=== PATIENT | female | born 1980 | race Caucasian/White ===

== ENCOUNTER 2018-12-28 12:38 | Emergency (ER) | payer BC, MEDICARE ==
[2018-12-28 12:57] VITALS: RESP 18; TEMP 97
--- NOTE | 2018-12-28 13:03 | ED ---
General Adult HPI - General Chief complaint: Psychiatric Symptoms Stated complaint: Suicidal Time Seen by Provider: 12/28/18 12:45 Source: patient, EMS, RN notes reviewed Mode of arrival: EMS Limitations: no limitations - History of Present Illness Initial comments: This is a 38-year-old female who comes in stating she no longer wants to live and has been considering taking a handful of pills to kill herself. Patient states she has chronic pain and she sick of being in pain so she wants to end it. Patient was at Dr. [place]'s office when she made these comments and the police were called and they brought her over to the hospital. Patient mother will be petitioning her. Patient denies any new physical complaints today. Patient states she only says knee pain and back pain but those have not changed. Patient denies any recent fever chills or cough. Patient denies any chest pain difficulty breathing shortest breath per patient denies any abdominal pain patient denies nausea vomiting diarrhea. - Related Data Home Medications Medication Instructions Recorded Confirmed DULoxetine HCL 60 mg PO BID 06/17/15 12/28/18 Naproxen [Naprosyn] 500 mg PO Q12HR 06/17/15 12/28/18 Polyethylene Glycol 3350 [Miralax] 34 gm PO DAILY 06/17/15 12/28/18 tiZANidine [Zanaflex] 4 - 8 mg PO BID PRN 06/17/15 12/28/18 Amitriptyline HCl [Elavil] 75 mg PO HS 07/30/16 12/28/18 L.acidoph,Paracasei, B.lactis 1 cap PO DAILY 12/28/18 12/28/18 [Probiotic] Lubiprostone [Amitiza] 24 mcg PO BID 12/28/18 12/28/18 Melatonin 5 mg PO HS 12/28/18 12/28/18 Multivitamins, Thera [Multivitamin 1 tab PO DAILY 12/28/18 12/28/18 (formulary)] Primidone [Mysoline] 50 mg PO DAILY 12/28/18 12/28/18 Primidone [Mysoline] 125 mg PO BID 12/28/18 12/28/18 traMADol HCL [Ultram] 50 mg PO BID PRN 12/28/18 12/28/18 Allergies Allergy/AdvReac Type Severity Reaction Status Date / Time No Known Allergies Allergy Verified 12/28/18 13:04 Review of Systems ROS Statement: Those systems with pertinent positive or pertinent negative responses have been documented in the HPI. ROS Other: All systems not noted in ROS Statement are negative. Past Medical History Past Medical History: Fibromyalgia, Osteoarthritis (OA) Additional Past Medical History / Comment(s): bilateral chronic knee pain, History of Any Multi-Drug Resistant Organisms: None Reported Past Surgical History: Cholecystectomy, Orthopedic Surgery Additional Past Surgical History / Comment(s): mult arthroscopy surgery on angelic knees, left knee ACL repair, Bone spurs on left knee, rt wrist surgery, carpal tunnel left Past Anesthesia/Blood Transfusion Reactions: No Reported Reaction Past Psychological History: Anxiety, Depression Smoking Status: Never smoker Past Alcohol Use History: None Reported Past Drug Use History: None Reported - Past Family History Mother Family Medical History: No Reported History General Exam - General Exam Comments Initial Comments: GENERAL: Patient is well-developed and well-nourished. Patient is nontoxic and well- hydrated and is in no acute distress. ENT: Neck is soft and supple. No significant lymphadenopathy is noted. EYES: The sclera were anicteric and conjunctiva were pink and moist. Extraocular movements were intact and pupils were equal round and reactive to light. Eyelids were unremarkable. PULMONARY: Unlabored respirations. Good breath sounds bilaterally. No audible rales rhonchi or wheezing was noted. CARDIOVASCULAR: There is a regular rate and rhythm without any murmurs gallops or rubs. ABDOMEN: Soft and nontender with normal bowel sounds. SKIN: Skin is clear with no lesions or rashes and otherwise unremarkable. NEUROLOGIC: Patient is alert and oriented x3. Cranial nerves II through XII are grossly intact. Motor and sensory are also intact. Normal speech, volume and content. Symmetrical smile. MUSCULOSKELETAL: Normal extremities with adequate strength and full range of motion. LYMPHATICS: No significant lymphadenopathy is noted PSYCHIATRIC: Patient is a flat affect and appears very depressed. Patient states she doesn't want to live anymore and is considering taking a handful of pills to kill herself Limitations: no limitations Course Vital Signs 12/28/18 12:48 Temperature 97 F L Pulse Rate 75 Respiratory 18 Rate Blood Pressure 130/83 O2 Sat by Pulse 100 Oximetry Medical Decision Making - Medical Decision Making EPS evaluated the patient and spoke with both the patient and mom everybody was comfortable with the follow-up plan and the patient states at this point time she is not feeling suicidal and will be safe if she goes home. - Lab Data Lab Results 12/28/18 Range/Units 13:02 Urine Opiates Screen Not Detected (NotDetected) Ur Oxycodone Screen Not Detected (NotDetected) Urine Methadone Screen Not Detected (NotDetected) Ur Propoxyphene Screen Not Detected (NotDetected) Ur Barbiturates Screen Detected H (NotDetected) U Tricyclic Antidepress Detected H (NotDetected) Ur Phencyclidine Scrn Not Detected (NotDetected) Ur Amphetamines Screen Not Detected (NotDetected) U Methamphetamines Scrn Not Detected (NotDetected) U Benzodiazepines Scrn Not Detected (NotDetected) Urine Cocaine Screen Not Detected (NotDetected) U Marijuana (THC) Screen Not Detected (NotDetected) Disposition Clinical Impression: Situational depression Disposition: HOME SELF-CARE Condition: Good Instructions (If sedation given, give patient instructions): Depression (ED) Is patient prescribed a controlled substance at d/c from ED?: No Referrals: Edie Vinson MD [Primary Care Provider] - 1-2 days Time of Disposition: 14:22
[2018-12-28 13:38] LABS: Amphetamine Screen,Urine Not Detected (NotDetected); Barbiturate Screen,Urine Detected (NotDetected); Benzodiazepines Screen,Urine Not Detected (NotDetected); Cocaine Screen,Urine Not Detected (NotDetected); Methadone Screen, Urine Not Detected (NotDetected); Opiate Screen,Urine Not Detected (NotDetected); Oxycodone Screen, Urine Not Detected (NotDetected); Phencyclidine Screen,Urine Not Detected (NotDetected); Tricyclic Antidepressant,Urine Detected (NotDetected); Urn Cannabinoid Scrn Not Detected (NotDetected)
[2018-12-28 14:38] VITALS: BP 117/77; PULSE 76
== END 2018-12-28 14:37 | disposition home or self-care (01) ==
LOC: EC 12:38
DX: F43.21 Adjustment disorder with depressed mood (principal); M79.7 Fibromyalgia; M19.90 Unspecified osteoarthritis, unspecified site; F41.9 Anxiety disorder, unspecified; M25.561 Pain in right knee; M25.562 Pain in left knee; G89.29 Other chronic pain; F32.9 Major depressive disorder, single episode, unspecified; Z90.49 Acquired absence of other specified parts of digestive tract; Z98.890 Other specified postprocedural states; Z79.1 Long term (current) use of non-steroidal anti-inflammatories (NSAID); Z79.899 Other long term (current) drug therapy
CPT/HCPCS: 80306; 82075; 99285

== ENCOUNTER 2019-01-03 15:00 | Inpatient (IN) | payer MEDICARE, MEDICAID ==
[2019-01-03 15:58] LABS: Cocaine Screen,Urine Not Detected (NotDetected); Phencyclidine Screen,Urine Not Detected (NotDetected); Urn Cannabinoid Scrn Not Detected (NotDetected)
--- NOTE | 2019-01-03 15:58 | ED ---
General Adult HPI - General Chief complaint: Psychiatric Symptoms Stated complaint: Suicidal Time Seen by Provider: 01/03/19 15:00 Source: patient, family, RN notes reviewed Mode of arrival: ambulatory Limitations: no limitations - History of Present Illness Initial comments: This is a 38-year-old female with a past medical history significant for depre ssion. Patient comes in today because she has been feeling so she doesn't want to live. Patient mentioned to somebody last week that she wanted someone to shooter. Patient mentions someone today that she wanted to fall sleep and never wake up. Patient states she would not up done anything today but she has talked about taking pills in the past. Patient was evaluated last week according to the mother. Patient denies any drinking or drug use. Patient denies any physical complaints today. Patient denies headache patient denies numbness weakness. Patient denies any chest pain difficulty breathing first breath per patient denies abdominal pain patient denies nausea vomiting diarrhea. - Related Data Home Medications Medication Instructions Recorded Confirmed DULoxetine HCL 60 mg PO BID 06/17/15 01/03/19 Naproxen [Naprosyn] 500 mg PO Q12HR 06/17/15 01/03/19 Polyethylene Glycol 3350 [Miralax] 34 gm PO DAILY 06/17/15 01/03/19 tiZANidine [Zanaflex] 4 - 8 mg PO TID PRN 06/17/15 01/03/19 Amitriptyline HCl [Elavil] 75 mg PO HS 07/30/16 01/03/19 L.acidoph,Paracasei, B.lactis 1 cap PO DAILY 12/28/18 01/03/19 [Probiotic] Lubiprostone [Amitiza] 24 mcg PO BID 12/28/18 01/03/19 Melatonin 5 mg PO HS 12/28/18 01/03/19 Multivitamins, Thera [Multivitamin 1 tab PO DAILY 12/28/18 01/03/19 (formulary)] Primidone [Mysoline] 50 mg PO DAILY 12/28/18 01/03/19 Primidone [Mysoline] 125 mg PO BID 12/28/18 01/03/19 traMADol HCL [Ultram] 50 mg PO BID PRN 12/28/18 01/03/19 Diclofenac Sodium [Voltaren] 75 mg PO BID 01/03/19 01/03/19 Levothyroxine Sodium [Synthroid] 50 mcg PO DAILY 01/03/19 01/03/19 Medroxyprogesterone Acetate 150 mg IM Q90D 01/03/19 01/03/19 [Depo-Provera] traZODone HCL [Desyrel] 100 mg PO HS 01/03/19 01/03/19 Allergies Allergy/AdvReac Type Severity Reaction Status Date / Time No Known Allergies Allergy Verified 01/03/19 16:24 Review of Systems ROS Statement: Those systems with pertinent positive or pertinent negative responses have been documented in the HPI. ROS Other: All systems not noted in ROS Statement are negative. Past Medical History Past Medical History: Fibromyalgia, Osteoarthritis (OA) Additional Past Medical History / Comment(s): bilateral chronic knee pain, History of Any Multi-Drug Resistant Organisms: None Reported Past Surgical History: Cholecystectomy, Orthopedic Surgery Additional Past Surgical History / Comment(s): mult arthroscopy surgery on angelic knees, left knee ACL repair, Bone spurs on left knee, rt wrist surgery, carpal tunnel left Past Anesthesia/Blood Transfusion Reactions: No Reported Reaction Past Psychological History: Anxiety, Depression Smoking Status: Never smoker Past Alcohol Use History: None Reported Past Drug Use History: None Reported - Past Family History Mother Family Medical History: No Reported History General Exam - General Exam Comments Initial Comments: GENERAL: Patient is well-developed and well-nourished. Patient is nontoxic and well- hydrated and is in no acute distress. ENT: Neck is soft and supple. No significant lymphadenopathy is noted. Oropharynx is clear. Moist mucous membranes. Neck has full range of motion without eliciting any pain. EYES: The sclera were anicteric and conjunctiva were pink and moist. Extraocular mov ements were intact and pupils were equal round and reactive to light. Eyelids were unremarkable. PULMONARY: Unlabored respirations. Good breath sounds bilaterally. No audible rales rhonchi or wheezing was noted. CARDIOVASCULAR: There is a regular rate and rhythm without any murmurs gallops or rubs. ABDOMEN: Soft and nontender with normal bowel sounds. SKIN: Skin is clear with no lesions or rashes and otherwise unremarkable. NEUROLOGIC: Patient is alert and oriented x3. Cranial nerves II through XII are grossly intact. Motor and sensory are also intact. Normal speech, volume and content. Symmetrical smile. MUSCULOSKELETAL: Normal extremities with adequate strength and full range of motion. LYMPHATICS: No significant lymphadenopathy is noted PSYCHIATRIC: Patient states she would rather be which is not planning on killing herself. Limitations: no limitations Course Vital Signs 01/03/19 01/03/19 15:03 17:40 Temperature 98.2 F 98.7 F Pulse Rate 84 67 Respiratory 16 18 Rate Blood Pressure 122/81 119/81 O2 Sat by Pulse 96 99 Oximetry Medical Decision Making - Medical Decision Making EKG was done on request of the psychiatrist. EKG shows normal sinus rhythm at 70 bpm VT interval 176 QRS is 80 QT interval 366 QTC is 417. Patient's EKG shows no ST segment elevation or depression or T wave abnormalities are noted. EPS evaluated the patient and determined the patient needed be admitted. - Lab Data Lab Results 01/03/19 Range/Units 15:21 Urine Opiates Screen Not Detected (NotDetected) Ur Oxycodone Screen Not Detected (NotDetected) Urine Methadone Screen Not Detected (NotDetected) Ur Propoxyphene Screen Not Detected (NotDetected) Ur Barbiturates Screen Detected H (NotDetected) U Tricyclic Antidepress Detected H (NotDetected) Ur Phencyclidine Scrn Not Detected (NotDetected) Ur Amphetamines Screen Not Detected (NotDetected) U Methamphetamines Scrn Not Detected (NotDetected) U Benzodiazepines Scrn Not Detected (NotDetected) Urine Cocaine Screen Not Detected (NotDetected) U Marijuana (THC) Screen Not Detected (NotDetected) Disposition Clinical Impression: Depression, Suicidal ideation Disposition: ADMITTED IP TO THIS [facility] Time of Disposition: 18:15
[2019-01-03 15:59] LABS: Amphetamine Screen,Urine Not Detected (NotDetected); Barbiturate Screen,Urine Detected (NotDetected); Benzodiazepines Screen,Urine Not Detected (NotDetected); Methadone Screen, Urine Not Detected (NotDetected); Opiate Screen,Urine Not Detected (NotDetected); Oxycodone Screen, Urine Not Detected (NotDetected); Tricyclic Antidepressant,Urine Detected (NotDetected)
[2019-01-03] MEDS ORDERED: MAG HYDROX/AL HYDROX/SIMETH 30 ML CUP PO PRN (18:28)
[2019-01-03] MEDS ORDERED: MAGNESIUM HYDROXIDE 2,400 MG/10 ML CUP PO PRN (18:28)
[2019-01-03] MEDS ORDERED: ZIPRASIDONE 20 MG VIAL IM PRN (18:28)
[2019-01-03] MEDS ORDERED: LORazepam 2 MG/ML INJ IM PRN (18:38)
[2019-01-03] MEDS ORDERED: tiZANidine 4 MG TAB PO PRN (18:49)
[2019-01-03] MEDS: NAPROXEN 250 MG TAB PO SCH (21:23)
[2019-01-03] MEDS: DULoxetine HCL 60 MG CAPSULE.DR PO SCH (21:23)
[2019-01-03] MEDS: AMITRIPTYLINE HCL 25 MG TAB PO SCH (21:23)
[2019-01-03] MEDS: PRIMIDONE 250 MG TAB PO SCH (21:24)
[2019-01-03] MEDS: NON-FORMULARY DRUG (Lubiprostone [Amitiza] 24 MCG) PO SCH (21:24)
[2019-01-04 02:11] LABS: Hemoglobin A1C 4.8 % (4.0-6.0)
[2019-01-04] MEDS: PRIMIDONE 250 MG TAB PO SCH ×2 (08:32→20:40)
[2019-01-04] MEDS: PRIMIDONE 50 MG TAB PO SCH (08:32)
[2019-01-04] MEDS: NAPROXEN 250 MG TAB PO SCH ×2 (08:33→20:39)
[2019-01-04 09:26] LABS: Basophils % (A) 1 %; Eosinophils # (A) 0.3 k/uL (0-0.7); Eosinophils % (A) 6 %; HCT 41.2 % (34.0-46.0); HGB 13.5 gm/dL (11.4-16.0); Lymphocytes # (A) 1.1 k/uL (1.0-4.8); Lymphocytes % (A) 26 %; MCH 31.8 pg (25.0-35.0); MCHC 32.7 g/dL (31.0-37.0); MCV 97.2 fL (80.0-100.0); Mean Platelet Volume 7.6; Monocytes # (A) 0.3 k/uL (0-1.0); Monocytes % (A) 6 %; Neutrophils # (A) 2.5 k/uL (1.3-7.7); Neutrophils % (A) 58 %; Platelet Count 235 k/uL (150-450); RBC 4.24 m/uL (3.80-5.40); WBC 4.3 k/uL (3.8-10.6)
[2019-01-04 09:49] LABS: ALT 50 U/L (9-52); AST 41 U/L (14-36); Albumin 4.2 g/dL (3.5-5.0); Alkaline Phosphatase 66 U/L (38-126); Anion Gap 7 mmol/L; Blood Urea Nitrogen 14 mg/dL (7-17); Calcium 9.3 mg/dL (8.4-10.2); Carbon Dioxide 27 mmol/L (22-30); Chloride 107 mmol/L (98-107); Cholesterol 206 mg/dL (<200); Glucose 139 mg/dL (74-99); HDL Cholesterol 55 mg/dL (40-60); LDL Cholesterol,Calculated 132 mg/dL (0-99); Sodium 141 mmol/L (137-145); Total Bilirubin 0.4 mg/dL (0.2-1.3); Triglycerides 96 mg/dL (<150)
[2019-01-04 09:51] LABS: Potassium 4.2 mmol/L (3.5-5.1)
[2019-01-04] MEDS: NON-FORMULARY DRUG (Lubiprostone [Amitiza] 24 MCG) PO SCH ×2 (10:58→20:38)
--- NOTE | 2019-01-04 11:20 | P.HPIM ---
History of Present Illness H&P Date: 01/04/19 This is a 38-year-old female patient of Dr. Vinson. Patient presents to the hospital with complaints of suicidal ideation. Patient was admitted to the mental health unit. Patient was reported to state that she doesn't want to live anymore amylase 100 to her. Patient reports that she has been in significant pain due to her chronic pain issues with fibromyalgia and osteoarthritis. Additional medical history includes anxiety depression anxiety attack. Patient denies alcohol or smoking. Patient has been admitted to the mental health care unit for further management depression and anxiety. At this time patient is complaining of generalized pain. Patient reports this is chronic. Patient d enies chest pain or shortness breath. Patient denies nausea vomiting or diarrhea. Patient denies any urinary burning or frequency. Review of Systems Please refer to HPI otherwise unremarkable Past Medical History Past Medical History: Fibromyalgia, Osteoarthritis (OA) Additional Past Medical History / Comment(s): bilateral chronic knee pain, History of Any Multi-Drug Resistant Organisms: None Reported Past Surgical History: Cholecystectomy, Orthopedic Surgery Additional Past Surgical History / Comment(s): mult arthroscopy surgery on angelic knees, left knee ACL repair, Bone spurs on left knee, rt wrist surgery, carpal tunnel left Past Anesthesia/Blood Transfusion Reactions: No Reported Reaction Past Psychological History: Anxiety, Depression Smoking Status: Never smoker Past Alcohol Use History: None Reported Past Drug Use History: None Reported - Past Family History Mother Family Medical History: No Reported History Medications and Allergies Home Medications Medication Instructions Recorded Confirmed Type DULoxetine HCL 60 mg PO BID 06/17/15 01/03/19 History Naproxen [Naprosyn] 500 mg PO Q12HR 06/17/15 01/03/19 History Polyethylene Glycol 3350 [Miralax] 34 gm PO DAILY 06/17/15 01/03/19 History tiZANidine [Zanaflex] 4 - 8 mg PO TID PRN 06/17/15 01/03/19 History Amitriptyline HCl [Elavil] 75 mg PO HS 07/30/16 01/03/19 History L.acidoph,Paracasei, B.lactis 1 cap PO DAILY 12/28/18 01/03/19 History [Probiotic] Lubiprostone [Amitiza] 24 mcg PO BID 12/28/18 01/03/19 History Melatonin 5 mg PO HS 12/28/18 01/03/19 History Multivitamins, Thera [Multivitamin 1 tab PO DAILY 12/28/18 01/03/19 History (formulary)] Primidone [Mysoline] 50 mg PO DAILY 12/28/18 01/03/19 History Primidone [Mysoline] 125 mg PO BID 12/28/18 01/03/19 History traMADol HCL [Ultram] 50 mg PO BID PRN 12/28/18 01/03/19 History Diclofenac Sodium [Voltaren] 75 mg PO BID 01/03/19 01/03/19 History Levothyroxine Sodium [Synthroid] 50 mcg PO DAILY 01/03/19 01/03/19 History Medroxyprogesterone Acetate 150 mg IM Q90D 01/03/19 01/03/19 History [Depo-Provera] traZODone HCL [Desyrel] 100 mg PO HS 01/03/19 01/03/19 History Allergies Allergy/AdvReac Type Severity Reaction Status Date / Time No Known Allergies Allergy Verified 01/03/19 16:24 Physical Exam Vitals: Vital Signs Temp Pulse Pulse Resp BP BP Pulse Ox 01/04/19 07:00 97.8 F 91 14 118/73 01/03/19 18:03 97.2 F L 84 18 136/84 97 01/03/19 17:40 98.7 F 67 18 119/81 99 01/03/19 15:03 98.2 F 84 16 122/81 96 Intake and Output 01/03/19 01/04/19 01/04/19 22:59 06:59 14:59 Other: Weight 81.647 kg Head normocephalic Neck supple Lungs clear to auscultation bilaterally no wheezing or crackles Heart regular rate and rhythm S1-S2, no rub or gallop Abdomen is soft nontender nondistended positive bowel sounds no hepatosplenomegaly Extremities no edema Neuro alert and orientated to 3 Results CBC & Chem 7: 01/04/19 09:00 01/04/19 09:00 Labs: Abnormal Lab Results - Last 24 Hours (Table) 01/03/19 01/04/19 Range/Units 15:21 09:00 Glucose 139 H (74-99) mg/dL AST 41 H (14-36) U/L Cholesterol 206 H (<200) mg/dL LDL Cholesterol, Calc 132 H (0-99) mg/dL TSH 4.740 H (0.465-4.680) mIU/L Ur Barbiturates Screen Detected H (NotDetected) U Tricyclic Antidepress Detected H (NotDetected) Assessment and Plan Assessment: 1. Suicidal ideation. Patient has been admitted to the mental health unit. 2. History of anxiety and depression 3. History of fibromyalgia 4. History of osteathritis 5. history of cholecystecotomy 6. Hypothyroidism. Patient is maintained on Synthroid 50 mcgs. TSH level 4.760. Patient's previous TSH level approximately 1 month ago 6.190. 7. Mildly elevated liver enzyme. AST is 41. Will repeat labs in a.m. Thank you for this consultation. Time with Patient: Greater than 30 (Greater than 60% of the total time spent in counseling and coordination of care. I performed an examination of the patient and discussed their management with the Nurse Practitioner. I have reviewed the Nurse Practitioner's notes and agree with the documented findings and plan of care)
[2019-01-04 11:26] VITALS: BMI 29.2
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
[2019-01-04] MEDS: MULTIVITAMINS, THERA 1 EACH TAB PO SCH (13:42)
[2019-01-04 14:11] LABS: Appearance,Urine Cloudy (Clear); Bacteria,Urine Many /hpf; Bilirubin,Urine Negative (Negative); Blood,Urine Negative (Negative); Color,Urine Light Yellow; Glucose,Urine (UA) Negative (Negative); Ketones,Urine Negative (Negative); Leukocyte Esterase,Urine Trace (Negative); Mucus,Urine Rare /hpf; Nitrite,Urine Negative (Negative); Protein,Urine Negative (Negative); Specific Gravity,Urine 1.005 (1.001-1.035); Squamous Epithelial Cell,Urine 2 /hpf (0-4); Urobilinogen,Urine <2.0 mg/dL (<2.0); WBC,Urine 2 /hpf (0-5)
[2019-01-04] MEDS: ACETAMINOPHEN TAB 325 MG TAB PO PRN (17:25)
[2019-01-04] MEDS: AMITRIPTYLINE HCL 25 MG TAB PO SCH (20:37)
[2019-01-04] MEDS: DULoxetine HCL 60 MG CAPSULE.DR PO SCH (20:37)
[2019-01-04] MEDS: LORazepam 1 MG TAB PO PRN (20:41)
[2019-01-05] MEDS: NAPROXEN 250 MG TAB PO SCH ×2 (07:43→21:27)
[2019-01-05] MEDS: NON-FORMULARY DRUG (Lubiprostone [Amitiza] 24 MCG) PO SCH (07:43)
[2019-01-05] MEDS: LEVOTHYROXINE 50 MCG TAB PO SCH (07:43)
[2019-01-05] MEDS: PRIMIDONE 50 MG TAB PO SCH (07:44)
[2019-01-05] MEDS: PRIMIDONE 250 MG TAB PO SCH ×2 (07:46→21:28)
[2019-01-05 10:25] LABS: ALT 48 U/L (9-52); AST 37 U/L (14-36); Albumin 4.4 g/dL (3.5-5.0); Alkaline Phosphatase 73 U/L (38-126); Anion Gap 9 mmol/L; Blood Urea Nitrogen 16 mg/dL (7-17); Calcium 9.2 mg/dL (8.4-10.2); Carbon Dioxide 24 mmol/L (22-30); Chloride 110 mmol/L (98-107); Glucose 75 mg/dL (74-99); Potassium 4.2 mmol/L (3.5-5.1); Sodium 143 mmol/L (137-145); Total Bilirubin 0.4 mg/dL (0.2-1.3); Total Protein 7.3 g/dL (6.3-8.2)
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
[2019-01-05] MEDS: MULTIVITAMINS, THERA 1 EACH TAB PO SCH (12:00)
[2019-01-05] MEDS: ACETAMINOPHEN TAB 325 MG TAB PO PRN ×2 (13:27→18:45)
[2019-01-05 14:07] LABS: Amit + Nort INDTRMNT ng/mL (90-250); Nortriptyline 28 ng/mL (50-140)
[2019-01-05] MEDS: tiZANidine 4 MG TAB PO SCH ×2 (16:36→21:32)
[2019-01-05] MEDS ORDERED: PRAMIPEXOLE 0.5 MG TAB PO SCH (21:00)
[2019-01-05] MEDS: AMITRIPTYLINE HCL 25 MG TAB PO SCH (21:29)
[2019-01-05] MEDS: MELOXICAM 7.5 MG TAB PO SCH (21:30)
[2019-01-06] MEDS: LEVOTHYROXINE 50 MCG TAB PO SCH (06:11)
[2019-01-06] MEDS: PRIMIDONE 50 MG TAB PO SCH (08:27)
[2019-01-06] MEDS: PRIMIDONE 250 MG TAB PO SCH ×2 (08:27→21:22)
[2019-01-06] MEDS: tiZANidine 4 MG TAB PO SCH ×3 (08:28→21:18)
[2019-01-06] MEDS: MELOXICAM 7.5 MG TAB PO SCH ×2 (08:28→21:16)
[2019-01-06] MEDS: NAPROXEN 250 MG TAB PO SCH ×2 (08:33→21:17)
[2019-01-06] MEDS ORDERED: DESVENLAFAXINE SUCCINATE 50 MG TAB.ER.24H PO SCH (09:00)
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
[2019-01-06 12:04] LABS: T4, Free (Free Thyroxine) 1.68 ng/dL (0.78-2.19)
[2019-01-06] MEDS: MULTIVITAMINS, THERA 1 EACH TAB PO SCH (12:33)
[2019-01-06] MEDS: AMITRIPTYLINE HCL 25 MG TAB PO SCH (21:15)
[2019-01-06] MEDS: PRAMIPEXOLE 1 MG TAB PO SCH (21:18)
[2019-01-06] MEDS: AMITIZA 24 MCG PO SCH (21:20)
[2019-01-07] MEDS: LEVOTHYROXINE 50 MCG TAB PO SCH (06:13)
[2019-01-07] MEDS: DESVENLAFAXINE SUCCINATE 50 MG TAB.ER.24H PO SCH (08:25)
[2019-01-07] MEDS: PRIMIDONE 50 MG TAB PO SCH (08:25)
[2019-01-07] MEDS: MODAFINIL 100 MG TAB PO SCH (08:25)
[2019-01-07] MEDS: tiZANidine 4 MG TAB PO SCH ×3 (08:25→21:11)
[2019-01-07] MEDS: AMITIZA 24 MCG PO SCH ×2 (08:25→21:14)
[2019-01-07] MEDS: PRIMIDONE 250 MG TAB PO SCH ×2 (08:26→21:10)
[2019-01-07] MEDS: MELOXICAM 7.5 MG TAB PO SCH ×2 (08:27→21:13)
[2019-01-07 08:32] LABS: ALT 50 U/L (9-52); AST 31 U/L (14-36); Albumin 4.2 g/dL (3.5-5.0); Alkaline Phosphatase 77 U/L (38-126); Anion Gap 7 mmol/L; Blood Urea Nitrogen 12 mg/dL (7-17); Calcium 9.3 mg/dL (8.4-10.2); Carbon Dioxide 26 mmol/L (22-30); Chloride 108 mmol/L (98-107); Glucose 95 mg/dL (74-99); Potassium 4.5 mmol/L (3.5-5.1); Sodium 141 mmol/L (137-145); Total Bilirubin 0.5 mg/dL (0.2-1.3)
[2019-01-07] MEDS: NAPROXEN 250 MG TAB PO SCH ×2 (09:01→21:11)
[2019-01-07] MEDS: MULTIVITAMINS, THERA 1 EACH TAB PO SCH (11:58)
--- NOTE | 2019-01-07 15:49 | P.PN ---
Progress Note - Text IDENTIFICATION DATA: 38-year-old single female was admitted to evaluate her overall psychiatric care since she stopped going to [facility] and recurrent ER visits with suicidal ideations. This time she presented with thoughts of not waking up and and dying due to feeling overwhelmed with pain. She had a head injury and has been diagnosed with TBI, PTSD and MDD. INTERVAL HISTORY: She reports doing well and claims she is getting adjusted to her new medications. She says her pain is tolerable. She no longer has suicidal ideations. She says she is committed to follow up with [facility] from now onwards. She denies any side effects from her current medications. She reports poor sleep and says she only sleeps for three to four hours. She reports good appetite. MENTAL STATUS EXAMINATION: The patient is alert and oriented 4 and in no apparent distress. Motor and speech behaviors are within normal limits. Mood is euthymic and affect is constricted. thought processes linear thought content is negative for suicidal or homicidal ideation. She reports seeing stars at times which doesnt bother her much. Denies auditory halluciantions. Denies paranoia. insight and judgment are improving. ASSESSMENT AND PLAN: Major depression Continue current medications
[2019-01-07] MEDS: AMITRIPTYLINE HCL 25 MG TAB PO SCH (21:11)
[2019-01-07] MEDS: PRAMIPEXOLE 1 MG TAB PO SCH (21:11)
[2019-01-08] MEDS: LEVOTHYROXINE 50 MCG TAB PO SCH (06:18)
[2019-01-08] MEDS: AMITIZA 24 MCG PO SCH ×2 (08:37→21:09)
[2019-01-08] MEDS: MODAFINIL 100 MG TAB PO SCH (08:38)
[2019-01-08] MEDS: tiZANidine 4 MG TAB PO SCH ×3 (08:38→21:07)
[2019-01-08] MEDS: DESVENLAFAXINE SUCCINATE 50 MG TAB.ER.24H PO SCH (08:38)
[2019-01-08] MEDS: MELOXICAM 7.5 MG TAB PO SCH ×2 (08:38→21:05)
[2019-01-08] MEDS: PRIMIDONE 250 MG TAB PO SCH ×2 (08:38→21:06)
[2019-01-08] MEDS: NAPROXEN 250 MG TAB PO SCH ×2 (08:38→21:06)
[2019-01-08] MEDS: PRIMIDONE 50 MG TAB PO SCH (08:38)
[2019-01-08] MEDS: MULTIVITAMINS, THERA 1 EACH TAB PO SCH (11:57)
[2019-01-08] MEDS: ACETAMINOPHEN TAB 325 MG TAB PO PRN (12:53)
--- NOTE | 2019-01-08 17:44 | P.PN ---
Progress Note - Text IDENTIFICATION DATA: 38-year-old single female was admitted to evaluate her overall psychiatric care since she stopped going to [facility] and recurrent ER visits with suicidal ideations. This time she presented with thoughts of not waking up and and dying due to feeling overwhelmed with pain. She had a head injury and has been diagnosed with TBI, PTSD and MDD. INTERVAL HISTORY: She reports hearing voices once in a while and describes them as having an argument with herself. She reports missing her cat, but is also fearful that if she leaves the hospital and if her medications are not working well for her what is she supposed to do. She claims she did not sleep well yesterday due to having back pain and difficulty breathing. She denies feeling sad or hopeless. She reports good appetite. She is complaint with her medications and denies side effects. t MENTAL STATUS EXAMINATION: 38 year old woman, appears in fair grooming and hygeien. She maintains intemittent eye contact. The patient is alert and oriented 4 . Motor and speech behaviors are within normal limits. Mood is euthymic and affect is constricted. thought processes linear thought content is negative for suicidal or homicidal ideation. She reports occasianal auditory and visual halluciantions. Denies paranoia. insight and judgment are improving. ASSESSMENT AND PLAN: Major depression Continue current medications
[2019-01-08] MEDS: AMITRIPTYLINE HCL 25 MG TAB PO SCH (21:05)
[2019-01-08] MEDS: PRAMIPEXOLE 1 MG TAB PO SCH (21:07)
[2019-01-09] MEDS: LEVOTHYROXINE 50 MCG TAB PO SCH (05:44)
[2019-01-09] MEDS: MELOXICAM 7.5 MG TAB PO SCH ×2 (09:15→20:46)
[2019-01-09] MEDS: AMITIZA 24 MCG PO SCH (09:17)
[2019-01-09] MEDS: NAPROXEN 250 MG TAB PO SCH ×2 (09:17→20:50)
[2019-01-09] MEDS: DESVENLAFAXINE SUCCINATE 50 MG TAB.ER.24H PO SCH (09:20)
[2019-01-09] MEDS: PRIMIDONE 250 MG TAB PO SCH ×2 (09:20→21:17)
[2019-01-09] MEDS: tiZANidine 4 MG TAB PO SCH (09:21)
[2019-01-09] MEDS: PRIMIDONE 50 MG TAB PO SCH (09:21)
[2019-01-09] MEDS: MODAFINIL 100 MG TAB PO SCH (09:23)
[2019-01-09] MEDS: MULTIVITAMINS, THERA 1 EACH TAB PO SCH (12:44)
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
[2019-01-09] MEDS: ACETAMINOPHEN TAB 325 MG TAB PO PRN (16:36)
[2019-01-09] MEDS: AMITRIPTYLINE HCL 25 MG TAB PO SCH (20:47)
[2019-01-09] MEDS ORDERED: PRAMIPEXOLE 1 MG TAB PO SCH (21:00)
[2019-01-10] MEDS: LORazepam 1 MG TAB PO PRN (04:10)
[2019-01-10 04:14] VITALS: BP 123/79; PULSE 106; RESP 14; TEMP 98
[2019-01-10] MEDS: LEVOTHYROXINE 50 MCG TAB PO SCH (05:34)
[2019-01-10] MEDS: DESVENLAFAXINE SUCCINATE 50 MG TAB.ER.24H PO SCH (08:52)
[2019-01-10] MEDS: MELOXICAM 7.5 MG TAB PO SCH (08:52)
[2019-01-10] MEDS: NAPROXEN 250 MG TAB PO SCH (08:53)
[2019-01-10] MEDS: PRIMIDONE 50 MG TAB PO SCH (08:54)
[2019-01-10] MEDS: PRIMIDONE 250 MG TAB PO SCH (08:54)
[2019-01-10] MEDS ORDERED: MODAFINIL 200 MG TAB PO SCH (09:00)
[2019-01-10] MEDS: ACETAMINOPHEN TAB 325 MG TAB PO PRN (10:49)
[2019-01-10] MEDS: MULTIVITAMINS, THERA 1 EACH TAB PO SCH (10:50)
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
== END 2019-01-10 16:16 | disposition home or self-care (01) | DRG 885 ==
LOC: EC 15:00 → 3MHU 17:44
PROVIDERS: ADMIT Psychiatry & Neurology Psychiatry; ATTEND Psychiatry & Neurology Psychiatry
DX: F32.3 Major depressive disorder, single episode, severe with psychotic features (principal); R45.851 Suicidal ideations; F41.1 Generalized anxiety disorder; M79.7 Fibromyalgia; M19.90 Unspecified osteoarthritis, unspecified site; G89.4 Chronic pain syndrome; R74.8 Abnormal levels of other serum enzymes; E03.9 Hypothyroidism, unspecified; Z87.820 Personal history of traumatic brain injury; F43.10 Post-traumatic stress disorder, unspecified; M54.9 Dorsalgia, unspecified; Z79.890 Hormone replacement therapy; Z79.899 Other long term (current) drug therapy; Z90.49 Acquired absence of other specified parts of digestive tract
CPT/HCPCS: 80053; 80061; 80306; 80335; 81001; 81025; 82075; 83036; 84439; 84443; 84481; 85025; 93005; 99285

== ENCOUNTER → 2019-04-28 | Outpatient (CLI) | payer OTHER ==
[2019-04-28 13:02] LABS: Basophils % (A) 0 %; Eosinophils % (A) 1 %; HCT 40.1 % (34.0-46.0); HGB 13.7 gm/dL (11.4-16.0); Lymphocytes # (A) 1.2 k/uL (1.0-4.8); Lymphocytes % (A) 37 %; MCH 32.1 pg (25.0-35.0); MCHC 34.1 g/dL (31.0-37.0); MCV 94.3 fL (80.0-100.0); Mean Platelet Volume 7.8; Monocytes # (A) 0.2 k/uL (0-1.0); Monocytes % (A) 5 %; Neutrophils # (A) 1.7 k/uL (1.3-7.7); Neutrophils % (A) 54 %; Platelet Count 255 k/uL (150-450); RBC 4.26 m/uL (3.80-5.40); RDW 13.1 % (11.5-15.5); WBC 3.2 k/uL (3.8-10.6)
[2019-04-28 16:28] LABS: Albumin 4.5 g/dL (3.80-4.90); Anion Gap 8.4 mmol/L (4.00-12.00); BUN/Creat Ratio 14.44 Ratio (12.00-20.00); Calcium 9.3 mg/dL (8.7-10.3); Carbon Dioxide 26.6 mmol/L (21.6-31.8)
[2019-04-28 21:29] LABS: Hemoglobin A1C 4.8 % (4.0-6.0)
== END ==
LOC: LABWHC1 11:47
PROVIDERS: ATTEND Orthopaedic Surgery
DX: Z01.810 Encounter for preprocedural cardiovascular examination (principal); Z01.812 Encounter for preprocedural laboratory examination
CPT/HCPCS: 36415; 80048; 82040; 83036; 85025; 87070; 93005

== ENCOUNTER → 2019-08-21 | Outpatient (CLI) | payer MEDICARE ==
--- NOTE | 2019-08-22 04:22 | CT ---
EXAMINATION TYPE: CT abdomen pelvis wo con DATE OF EXAM: 08/21/2019 COMPARISON: None HISTORY: 38-year-old female Blood and mucus in stool. CT DLP: 375.4 mGycm. Automated exposure control for dose reduction was used. TECHNIQUE: Contiguous axial scanning of the abdomen and pelvis without IV contrast. Coronal and sagit frannie reconstructions performed. FINDINGS: Heart normal size without pericardial effusion. Lung bases clear without pleural effusion. Noncontrast appearance of the liver, adrenal glands, kidneys, and pancreas show no gross abnormality. Spleen is borderline enlarged at 13.9 cm. Cholecystectomy clips. The lack of IV contrast and paucity of intra-abdominal fat limits the examination. Moderate stool in the right-sided colon.. Possible circumferential wall thickening along the rectum, referred to axial images 74 through 82. No dilated small bowel, free fluid, or free air. Limited assessment for intra-abdominal lymph nodes. No obvious lymphadenopathy seen. Unable to clearly identify the appendix. Bladder partially distended. Uterus anteverted. Ovaries not clearly delineated from adjacent bowel. M ultiple pelvic phleboliths on the left. No abnormal fluid collection seen in the pelvis. Bones: Bilateral L5 pars defects with grade 1 anterolisthesis at L5-S1 with mild degenerative disc di sease. Posterior bulging disc at L3-L4 as well. There is narrowing of the bilateral L5-S1 neuroforame n. IMPRESSION: 1. Lack of contrast and possibly of intra-abdominal fat limits the overall evaluation. There is mode rate stool in the right side of the colon. On this study, no significant diverticular changes identif ied. 2. Questionable wall thickening of the rectum. Nonspecific colitis is possible. Direct visualization as indicated. 3. Borderline splenomegaly and 13.9 cm. 4. Bilateral L5 pars defects with grade 1 anterolisthesis L5-S1.
== END | disposition home or self-care (01) ==
LOC: RADCTMAIN 15:23
PROVIDERS: ATTEND Surgery Plastic and Reconstructive Surgery
DX: M43.17 Spondylolisthesis, lumbosacral region (principal); R16.1 Splenomegaly, not elsewhere classified; K57.30 Diverticulosis of large intestine without perforation or abscess without bleeding; K57.92 Diverticulitis of intestine, part unspecified, without perforation or abscess without bleeding
CPT/HCPCS: 74176

== ENCOUNTER 2019-09-07 09:01 | Day surgery (SDC) | payer MEDICARE, OTHER ==
[2019-09-05 14:50] VITALS: BMI 23.2
--- NOTE | 2019-09-07 08:50 | P.GSHP ---
History of Present Illness H&P Date: 09/07/19 CHIEF COMPLAINT: Change in bowel habits HISTORY OF PRESENT ILLNESS: The patient is a 38-year-old female who presents for change in bowel habits. Lower endoscopy was offered for further evaluation and management. PAST MEDICAL HISTORY: Please see list. PAST SURGICAL HISTORY: Please see list. MEDICATIONS: Please see list. ALLERGIES: Please see list. SOCIAL HISTORY: No illicit drug use FAMILY HISTORY: No reports of Crohn disease or ulcerative colitis. REVIEW OF ORGAN SYSTEMS: CONSTITUTIONAL: No reports of fevers or chills. PHYSICAL EXAM: VITAL SIGNS: Stable GENERAL: Well-developed pleasant in no acute distress. HEENT: No scleral icterus. Extraocular movements grossly intact. Moist buccal mucosa. NECK: Supple without lymphadenopathy. CHEST: Unlabored respirations. Equal bilateral excursions. CARDIOVASCULAR: Regular rate and rhythm. Distal 2+ pulses. ABDOMEN: Soft, nontender, nondistended. MUSCULOSKELETAL: No clubbing, cyanosis, or edema. ASSESSMENT: 1. Change in bowel habits PLAN: 1. Recommend proceeding with a lower endoscopy Past Medical History Past Medical History: Fibromyalgia, GERD/Reflux, Osteoarthritis (OA), Thyroid Disorder Additional Past Medical History / Comment(s): chronic back pain, hypothyroid., states mucus and blood in stools. History of Any Multi-Drug Resistant Organisms: None Reported Past Surgical History: Cholecystectomy, Orthopedic Surgery Additional Past Surgical History / Comment(s): mult arthroscopy surgery on angelic knees, left knee ACL repair, Bone spurs on left knee, rt wrist surgery, carpal tunnel left Past Anesthesia/Blood Transfusion Reactions: No Reported Reaction Past Psychological History: Anxiety, Depression Additional Psychological History / Comment(s): . Smoking Status: Never smoker Past Alcohol Use History: None Reported Past Drug Use History: None Reported - Past Family History Mother Family Medical History: No Reported History Medications and Allergies Home Medications Medication Instructions Recorded Confirmed Type Polyethylene Glycol 3350 [Miralax] 34 gm PO BID PRN 06/17/15 09/05/19 History Lubiprostone [Amitiza] 24 mcg PO BID 12/28/18 09/05/19 History Multivitamins, Thera [Multivitamin 1 tab PO DAILY 12/28/18 09/05/19 History (formulary)] Primidone [Mysoline] 50 mg PO QAM 12/28/18 09/05/19 History Primidone [Mysoline] 125 mg PO BID 12/28/18 09/05/19 History Levothyroxine Sodium [Synthroid] 50 mcg PO DAILY 01/03/19 09/05/19 History Medroxyprogesterone Acetate 150 mg IM Q90D 01/03/19 09/05/19 History [Depo-Provera] Amitriptyline HCl [Elavil] 25 mg PO QAM 09/05/19 09/05/19 History Amitriptyline HCl [Elavil] 100 mg PO HS 09/05/19 09/05/19 History Desvenlafaxine Succinate [Pristiq 50 mg PO DAILY 09/05/19 09/05/19 History ER] Gabapentin [Neurontin] 100 mg PO TID 09/05/19 09/05/19 History Pramipexole [Mirapex] 2 mg PO HS 09/05/19 09/05/19 History tiZANidine [Zanaflex] 6 mg PO HS 09/05/19 09/05/19 History Allergies Allergy/AdvReac Type Severity Reaction Status Date / Time No Known Allergies Allergy Verified 09/05/19 14:20
[~2019-09-07 09:01] MED LIST: DEXAMETHASONE SOD PHOSPHATE 10 MG/ML 1 ML VIAL IV ONE; LIDOCAINE 1% 20 ML VIAL (10MG/ML) FOR IV START INTRADERMA PRN; ONDANSETRON 4 MG/2 ML VIAL IVP ONE
[2019-09-07 09:27] VITALS: TEMP 97.6
[2019-09-07] MEDS: LACTATED RINGERS 1,000 ML IV SCH ×2 (09:28→09:36)
[2019-09-07] MEDS ORDERED: LIDOCAINE 1% INJ 10MG/ML (20 ML MDV) ONE (10:14)
[2019-09-07] MEDS ORDERED: PROPOFOL 10 MG/ML 20 ML VIAL IV ONE (10:14)
--- NOTE | 2019-09-07 10:41 | P.PCN ---
Date of Procedure: 09/07/19 Description of Procedure: PREOPERATIVE DIAGNOSIS: Change in bowel habits Rectal bleeding POSTOPERATIVE DIAGNOSIS: Change in bowel habits Rectal bleeding Diverticulosis, few OPERATION: Colonoscopy to the ileocecal valve and appendiceal orifice. Colonoscopy with random biopsies SURGEON: Karen Ramon MD. ANESTHESIA: MAC. INDICATIONS: The patient is a 38-year-old female who presents with rectal bleeding including change in bowel habits. Benefits and risks were described and informed consent was obtained. DESCRIPTION OF PROCEDURE: The patient had undergone Suprep. She had been brought into the operating room and laid in the left lateral decubitus position. After adequate intravenous sedation, the rectum was examined with 2% lidocaine jelly. No external hemorrhoids were encountered. The rectal tone was within normal limits. No lesions were palpated in the rectal vault. An Olympus colonoscope was advanced until the ileocecal valve and appendiceal orifice were clearly viewed. The prep was excellent with clear visualization of the mucosal folds. The scope was removed with visualization of each mucosal fold. Scattered diverticulosis was encountered. No colonic polyps were found. Focal colitis was confirmed on the rectum with random biopsies obtained throughout the colon for microscopic colitis. Retroflexion of the scope demonstrated no internal hemorrhoids. A redundant tissue from the rectum was found proximal to the anal sphincter and biopsied as moderate inflammation was identified. The colon was desufflated. The patient had tolerated the procedure well. Withdrawal time was over 6 minutes. FINDINGS: Aronchick preparation quality scale 1 (1-5) No internal hemorrhoids No external prolapsed hemorrhoids. No arteriovenous malformations. No adenomatous polyps. Localized colitis of the rectum with biopsies obtained Random biopsies throughout the colon and gained for microscopic colitis Redundant tissue of the rectum with active inflammation identified RECOMMENDATIONS: Lower endoscopy as needed Plan - Discharge Summary New Discharge Prescriptions: No Action Polyethylene Glycol 3350 [Miralax] 34 gm PO BID PRN PRN Reason: Constipation Primidone [Mysoline] 50 mg PO QAM Lubiprostone [Amitiza] 24 mcg PO BID Primidone [Mysoline] 125 mg PO BID Multivitamins, Thera [Multivitamin (formulary)] 1 tab PO DAILY Medroxyprogesterone Acetate [Depo-Provera] 150 mg IM Q90D Levothyroxine Sodium [Synthroid] 50 mcg PO DAILY Desvenlafaxine Succinate [Pristiq ER] 50 mg PO DAILY tiZANidine [Zanaflex] 6 mg PO HS Pramipexole [Mirapex] 2 mg PO HS Gabapentin [Neurontin] 100 mg PO TID Amitriptyline HCl [Elavil] 100 mg PO HS Amitriptyline HCl [Elavil] 25 mg PO QAM Discharge Medication List Polyethylene Glycol 3350 [Miralax] 34 gm PO BID PRN 06/17/15 [History] Lubiprostone [Amitiza] 24 mcg PO BID 12/28/18 [History] Multivitamins, Thera [Multivitamin (formulary)] 1 tab PO DAILY 12/28/18 [History] Primidone [Mysoline] 50 mg PO QAM 12/28/18 [History] Primidone [Mysoline] 125 mg PO BID 12/28/18 [History] Levothyroxine Sodium [Synthroid] 50 mcg PO DAILY 01/03/19 [History] Medroxyprogesterone Acetate [Depo-Provera] 150 mg IM Q90D 01/03/19 [History] Amitriptyline HCl [Elavil] 25 mg PO QAM 09/05/19 [History] Amitriptyline HCl [Elavil] 100 mg PO HS 09/05/19 [History] Desvenlafaxine Succinate [Pristiq ER] 50 mg PO DAILY 09/05/19 [History] Gabapentin [Neurontin] 100 mg PO TID 09/05/19 [History] Pramipexole [Mirapex] 2 mg PO HS 09/05/19 [History] tiZANidine [Zanaflex] 6 mg PO HS 09/05/19 [History] Follow up Appointment(s)/Referral(s): Karen Ramon MD [STAFF PHYSICIAN] - 09/19/19 Patient Instructions/Handouts: *Surgery [facility] - (Anesthesia) Endoscopy Discharge Instructions Activity/Diet/Wound Care/Special Instructions: Lower endoscopy as needed Discharge Disposition: HOME SELF-CARE
[2019-09-07 10:43] VITALS: RESP 16
[2019-09-07 11:00] VITALS: BP 100/66; PULSE 78
== END 2019-09-07 12:01 | disposition home or self-care (01) ==
LOC: ORWHC2ENDO 09:01
PROVIDERS: ATTEND Surgery Plastic and Reconstructive Surgery
DX: K51.211 Ulcerative (chronic) proctitis with rectal bleeding (principal); K57.30 Diverticulosis of large intestine without perforation or abscess without bleeding; M79.7 Fibromyalgia; K21.9 Gastro-esophageal reflux disease without esophagitis; M19.90 Unspecified osteoarthritis, unspecified site; E03.9 Hypothyroidism, unspecified; F41.9 Anxiety disorder, unspecified; F32.9 Major depressive disorder, single episode, unspecified; N19 Unspecified kidney failure; R56.9 Unspecified convulsions; Z90.49 Acquired absence of other specified parts of digestive tract; Z98.890 Other specified postprocedural states; Z79.3 Long term (current) use of hormonal contraceptives; Z79.890 Hormone replacement therapy; Z79.899 Other long term (current) drug therapy; Z86.73 Personal history of transient ischemic attack (TIA), and cerebral infarction without residual deficits
CPT/HCPCS: 81025; 88305; 45380; J2001; J2704

== ENCOUNTER → 2024-05-10 | Outpatient (CLI) | payer MEDICARE, OTHER ==
[2024-05-10 10:21] VITALS: BP 166/98; PULSE 65; RESP 16
--- NOTE | 2024-05-10 14:12 | P.PAINPG ---
Objective - Vital Signs Vital signs: Vital Signs Temp Pulse 65 05/10/24 10:18 Resp 16 05/10/24 10:18 BP 166/98 05/10/24 10:18 Pulse Ox 95 05/10/24 10:18 FiO2 Intake & Output 05/09/24 05/10/24 05/10/24 18:59 06:59 18:59 Weight 99.79 kg PQRS Measure Charge Sheet Mode of Arrival: Ambulatory Comment: HISTORY OF PRESENT ILLNESS: A 43 yr old female w mother at side as a referral from Dr Vinson presents today w severe and chronic LBP > 6 mo secondary to radiculopathy, spondylosis and facet arthropathy without myelopathy for evaluation. Pt states pain level is provoked at 7 /10 in intensity, constant, localized in the lower lumbar spine, predominantly axial, stabbing in character w occasional shooting tingling pain towards the back of the LEs and feet. Pain is provoked by bending. Pain is alleviated by medications (Tramadol, Naproxen), repositioning and rest . Oswestry axial pain score at 18. PMH: OA, Fibromyalgia, MDD/ Anxiety/ Panic Disorder PSH: Rectal Mass Excision (2019), Cholecystectomy, L ACL Repair, BL Knee Arthroscopies, L Partial Knee Replacement, R Wrist Surgery, L CTR SH: Negative x3 FH: Mo- No Reported History All: See list Meds: See list REVIEW OF ORGAN SYSTEMS: CONSTITUTIONAL: No fevers or chills. No recent weight loss. NEUROLOGICAL: + numbness and tingling along the distal extremities. No seizure disorders or headaches. MUSCULOSKELETAL: + pain PSYCHIATRIC: Denies current depression or suicidal thoughts. Physical Examinations : Constitutional : Cooperative , not in acute distress . Neurologic : Cranial nerve II to XII intact. No focal neurological deficits. Psychiatric : alert & oriented x 3. Matching mood & appropriate affect. Judgment & insight intact. Musculoskeletal : Cervical Spine Motor strength in the deltoid and biceps: Normal right side. Normal Left side Motor strength biceps and the wrist extensors: Normal right side . Normal left side Motor strength in the triceps muscle: Normal right side. Normal left side Deep tendon reflexes: Normal at the biceps. Normal at Brachioradialis. Normal at triceps Vertebral body tenderness to deep palpation over Cervical facet loading test: positive bilaterally Spurling test: positive bilaterally Neck distraction test: positive bilaterally Thompson sign: positive bilaterally Lumbar spine Motor strength lower extremities ,thigh and legs 5/5 Right side , 5/5 Left side Deep tendon reflexes : Normal Knee Jerk. Normal Ankle Jerk Vertebral body tenderness over L5 Mir Test positive BL L5-S1 Lumbar facet Loading Test: positive Right / positive Left Range of motion of the lumbar spine Flexion 30 degrees, extension 10 degrees Straight Leg Raise test: Left/ Right positive at degrees Balaji test: positive right / positive left. Severe tenderness over the Sacroiliac joint on the Right / Left sides Gaenslen test: positive bilaterally Seated flexion test: positive bilaterally. Sacral spine : Severe tenderness over the Sacroiliac joint: right side / left side Range of motion: Flexion of the lumbar spine <60 degrees Range of motion: Extension of the lumbar spine <20 degrees Gaenslen's Test positive Balaji test: positive right side / left side Thigh Thrust Test Sacral Thrust Test Imaging: MRI non contrast lumbar spine from 02/02/24 reviewed Assessment/ Plan : Lumbar radiculopathy Recommendation of PT x 6 wks M54.16 and medication management. Lyrica 75mg #60 w 1 RF. Use, side effects, adverse reactions, safe storage discussed. Opiate/ narcotic agreement signed 05/10/24. All questions answered. I have spent greater than 30 minutes on patient care today. Dr Huff was available by phone for the evaluation of this patient. The time was used to review the medical records including relevant urine studies and Prescription history (MAPs), review of the available imaging, evaluation and examination of the patient, coordination of care with the medical staff and if applicable referring physicians, as well as creation of the medical record - Pain Location Bilateral Lower Back Non-Pharmacological Interventions: Position/Reposition Pharmacological Interventions: PRN Medication, Scheduled Medication PQRS Narrative: Smoking Status Never smoker Blood Pressure 166/98 Pain Intensity [Bilateral 7 Lower Back] Scale Used Numeric (1 - 10) Hx Alcohol Use (MH) No Home Medications: Ambulatory Orders polyethylene glycoL 3350 [Miralax] 34 gm PO BID PRN 06/17/15 Lubiprostone [Amitiza] 24 mcg PO BID 12/28/18 Multivitamins, Thera [Multivitamin (formulary)] 1 tab PO DAILY 12/28/18 Primidone [Mysoline] 50 mg PO QAM 12/28/18 Primidone [Mysoline] 125 mg PO BID 12/28/18 Levothyroxine Sodium [Synthroid] 50 mcg PO DAILY 01/03/19 Medroxyprogesterone Acetate [Depo-Provera] 150 mg IM Q90D 01/03/19 Amitriptyline HCl [Elavil] 100 mg PO BID 09/05/19 Pramipexole [Mirapex] 2 mg PO HS 09/05/19 tiZANidine [Zanaflex] 6 mg PO HS 09/05/19 Meloxicam [Mobic] 15 mg PO DAILY 11/08/19 Temazepam [Restoril] 15 mg PO HS 11/08/19 Controlled Substance Measures - Controlled Substance Measures Is patient prescribed a controlled substance at discharge?: No When asked, does pt state using other controlled substances?: No If prescribed controlled substance>3 days was MAPS reviewed?: Yes If Rx opioid, was Start Talking consent form obtained?: Yes Was information provided regarding opioid addiction?: Yes
== END ==
LOC: PNWHC3 10:05
PROVIDERS: ATTEND Specialist
DX: M47.27 Other spondylosis with radiculopathy, lumbosacral region (principal); G89.29 Other chronic pain; G64 Other disorders of peripheral nervous system; R20.2 Paresthesia of skin; M54.2 Cervicalgia
CPT/HCPCS: 99211

== ENCOUNTER → 2024-07-05 | Outpatient (CLI) | payer MEDICARE, OTHER ==
[2024-07-05 10:15] VITALS: BP 119/87; PULSE 87; RESP 17
--- NOTE | 2024-07-05 14:42 | P.PAINPG ---
PQRS Measure Charge Sheet Comment: HISTORY OF PRESENT ILLNESS: A 43 yr old female w mother at side presents today w severe and chronic LBP > 6 mo secondary to radiculopathy, spondylosis and facet arthropathy without myelopathy for evaluation. Pt states pain level is provoked at 7 /10 in intensity, constant, localized in the lower lumbar spine, predominantly axial, stabbing in character w occasional shooting tingling pain towards the back of the LEs and feet. Pain is provoked by bending. Pain is alleviated by PT x 4 wks which ended Jun 28 2024 without relief, medications, repositioning and rest . Interventiona procedures include Medications include Tramadol, Naproxen, Lyrica REVIEW OF ORGAN SYSTEMS: CONSTITUTIONAL: No fevers or chills. No recent weight loss. NEUROLOGICAL: + numbness and tingling along the distal extremities. No seizure disorders or headaches. MUSCULOSKELETAL: + pain PSYCHIATRIC: Denies current depression or suicidal thoughts. Physical Examinations : Constitutional : Cooperative , not in acute distress . Neurologic : Cranial nerve II to XII intact. No focal neurological deficits. Psychiatric : alert & oriented x 3. Matching mood & appropriate affect. Judgment & insight intact. Musculoskeletal : Cervical Spine Motor strength in the deltoid and biceps: Normal right side. Normal Left side Motor strength biceps and the wrist extensors: Normal right side . Normal left side Motor strength in the triceps muscle: Normal right side. Normal left side Deep tendon reflexes: Normal at the biceps. Normal at Brachioradialis. Normal at triceps Vertebral body tenderness to deep palpation over Cervical facet loading test: positive bilaterally Spurling test: positive bilaterally Neck distraction test: positive bilaterally Thompson sign: positive bilaterally Lumbar spine Motor strength lower extremities ,thigh and legs 5/5 Right side , 5/5 Left side Deep tendon reflexes : Normal Knee Jerk. Normal Ankle Jerk Vertebral body tenderness over L5 Mir Test positive BL L5-S1 Lumbar facet Loading Test: positive Right / positive Left Range of motion of the lumbar spine Flexion 30 degrees, extension 10 degrees Straight Leg Raise test: Left/ Right positive at degrees Balaji test: positive right / positive left. Severe tenderness over the Sacroiliac joint on the Right / Left sides Gaenslen test: positive bilaterally Seated flexion test: positive bilaterally. Sacral spine : Severe tenderness over the Sacroiliac joint: right side / left side Range of motion: Flexion of the lumbar spine <60 degrees Range of motion: Extension of the lumbar spine <20 degrees Gaenslen's Test positive Balaji test: positive right side / left side Thigh Thrust Test Sacral Thrust Test Imaging: MRI non contrast lumbar spine from 02/02/24 reviewed Assessment/ Plan : Lumbar radiculopathy Recommendation of medication management. Lyrica 75mg #60 w 1 RF. Use, side effects, adverse reactions, safe storage discussed. Opiate/ narcotic agreement signed 05/10/24. All questions answered. I have spent greater than 30 minutes on patient care today. Dr Huff was available by phone for the evaluation of this patient. The time was used to review the medical records including relevant urine studies and Prescription history (MAPs), review of the available imaging, evaluation and examination of the patient, coordination of care with the medical staff and if applicable referring physicians, as well as creation of the medical record PQRS Narrative: Smoking Status Never smoker Hx Alcohol Use (MH) No Home Medications: Ambulatory Orders polyethylene glycoL 3350 [Miralax] 34 gm PO BID PRN 06/17/15 Lubiprostone [Amitiza] 24 mcg PO BID 12/28/18 Multivitamins, Thera [Multivitamin (formulary)] 1 tab PO DAILY 12/28/18 Primidone [Mysoline] 50 mg PO QAM 12/28/18 Primidone [Mysoline] 125 mg PO BID 12/28/18 Levothyroxine Sodium [Synthroid] 50 mcg PO DAILY 01/03/19 Medroxyprogesterone Acetate [Depo-Provera] 150 mg IM Q90D 01/03/19 Amitriptyline HCl [Elavil] 100 mg PO BID 09/05/19 Pramipexole [Mirapex] 2 mg PO HS 09/05/19 tiZANidine [Zanaflex] 6 mg PO HS 09/05/19 Meloxicam [Mobic] 15 mg PO DAILY 11/08/19 Temazepam [Restoril] 15 mg PO HS 11/08/19 Pregabalin [Lyrica] 75 mg PO BID 30 Days #60 cap 05/10/24 Controlled Substance Measures - Controlled Substance Measures Is patient prescribed a controlled substance at discharge?: Yes When asked, does pt state using other controlled substances?: No If prescribed controlled substance>3 days was MAPS reviewed?: Yes
== END ==
LOC: PNWHC3 09:41
PROVIDERS: ATTEND Specialist
DX: M47.26 Other spondylosis with radiculopathy, lumbar region (principal)
CPT/HCPCS: 99211

== ENCOUNTER → 2024-12-27 | Outpatient (CLI) | payer MEDICARE, OTHER ==
--- NOTE | 2024-12-27 10:03 | MM ---
Reason for Exam: Screening (asymptomatic). Last mammogram was performed 3 year(s) and 2 month(s) ago. Patient History: Menarche at age 12. Risk Values: Ame 5 year model risk: 0.6%. NCI Lifetime model risk: 7.1%. Prior Study Comparison: 11/03/2021 Bilateral Screening Mammogram, [facility]. Tissue Density: The breasts are heterogeneously dense, which may obscure small masses. Findings: Analyzed By CAD. There is no suspicious group of microcalcifications or new suspicious mass in either breast. Overall Assessment: Negative, BI-RAD 1 Management: Screening Mammogram of both breasts in 1 year. . Patient should continue monthly self-breast exams. A clinical breast exam by your physician is recommended on an annual basis. This exam should not preclude additional follow-up of suspicious palpable abnormalities. Note on Ame scores and lifetime risk: 1. A Ame score greater than 3% is considered moderate risk. If this is the case, consider specialist referral to assess eligibility for a risk reducing agent. 2. If overall lifetime risk for the development of breast cancer is 20% or higher, the patient may qualify for future screening with alternating mammogram and breast MRI. [facility], , 12/27/2024 10:00 AM. Electronically signed and approved by: Nav Parham M.D. Radiologis
== END | disposition home or self-care (01) ==
LOC: RADMAMWWP 07:13
PROVIDERS: ATTEND Family Medicine
DX: Z12.31 Encounter for screening mammogram for malignant neoplasm of breast (principal); R92.333 Mammographic heterogeneous density, bilateral breasts
CPT/HCPCS: 77063; 77067